=== PATIENT | male | born 1985 | race Two or more races ===

== ENCOUNTER 2021-07-23 11:10 | Emergency (ER) | payer OTHER ==
[~2021-07-23] VITALS: Ht 167.6 cm; Wt 72.6 kg
== END 2021-07-23 17:35 ==
LOC: ER 11:10
DX: J10.1 Influenza due to other identified influenza virus with other respiratory manifestations (principal); B34.9 Viral infection, unspecified; Z20.822 Contact with and (suspected) exposure to COVID-19